=== PATIENT | male | born 1975 | race Caucasian/White ===

== ENCOUNTER → 2025-04-17 16:02 | Outpatient (BNVA) | payer MEDICAID, SELFPAY | PROVIDERS: PCP Nurse Practitioner Family; Visit Provider Nurse Practitioner Family | DX: M16.12 Unilateral primary osteoarthritis, left hip (principal); M24.152 Other articular cartilage disorders, left hip | CPT/HCPCS: 73502 ==

== ENCOUNTER → 2025-05-31 12:11 | Outpatient (BNVA) | payer MEDICAID, SELFPAY | PROVIDERS: PCP Nurse Practitioner Family; Visit Provider Family Medicine | DX: Z01.818 Encounter for other preprocedural examination (principal); M16.12 Unilateral primary osteoarthritis, left hip; R26.2 Difficulty in walking, not elsewhere classified; Z99.89 Dependence on other enabling machines and devices | CPT/HCPCS: 80053; 81000; 85025 ==

== ENCOUNTER 2025-06-06 11:56 | Observation (INO) | payer MEDICAID, SELFPAY ==
[2025-06-06] VITALS (18 sets, daily range): BP systolic 83–154; BP diastolic 51–104; PULSE 48–86; RESP 15–98; TEMP 35.8–37; O2SAT 95–100; BMI 19.8
[2025-06-06 06:20] LABS: Glucose Urine UA Negative (Normal); Nitrate Urine Negative (Negative); Specific Gravity, Urine 1.017 (1.005-1.030)
[2025-06-06 06:25] LABS: Add Urine Microscopic? YES
--- NOTE | 2025-06-06 06:44 | W.PM.OPSUD ---
Surgery/Procedure H&P Update DATE OF PROCEDURE: June 06, 2025 DATE H&P PERFORMED: 05/31/25 H&P UPDATE INFORMATION: I have reviewed H&P completed within last 30 days, I have examined patient prior to procedure and No changes to prior documentation PLANNED PROCEDURE: Operation Date: 06/06/25 09:05 Proposed Procedures p LEFT Total Hip Arthroplasty(Left) - Roderick Otero MD
--- NOTE | 2025-06-06 07:59 | ANES.PREANE2 ---
Pre-Anesthetic Assessment Height/Weight: Height 6 ft 1 in Weight 150 lb Temp Pulse Resp BP Pulse Ox O2 Del Method 98.6 F 81 17 154/104 98 Room Air 06/06/25 06:11 06/06/25 06:11 06/06/25 06:11 06/06/25 06:11 06/06/25 06:11 06/06/25 06:11 Preop Diagnosis: Hip arthritis Operation Date: 06/06/25 09:05 Proposed Procedures p LEFT Total Hip Arthroplasty(Left) - Roderick Otero MD Was Beta Edna taken within 24 hours: N/A Was Clonidine taken within 24 hours: N/A Last intake: Intake Last Liquid Date 06/05/25 Last Liquid Time 19:00 Last Solid Date 06/05/25 Last Solid Time 19:00 Social Alcohol and Tobacco Exam alert, oriented x 3, clear to auscultation bilaterally and regular rate & rhythm Airway Submandibular: within normal limits Cervical ROM: within normal limits Mallampati: Class I Comments: Comments: Edentulous Anesthetic Plan ASA status: 3 Anesthesia: MAC and Regional (specify below) Other: No prior issues with anesthesia NPO since yesterday evening Current smoker, nicotine and marijuana States his blood pressure has been getting higher over the past year. Preop BP 154/104. No antihypertensives at baseline Patient states he has to use a walker to ambulate due to hip pain Labs reviewed and acceptable for procedure Plan for spinal anesthesia Medications/Allergies Home Medications ?Medication ?Instructions ?Recorded ?Confirmed ?Last Taken ?Type diclofenac sodium 50 mg 50 mg PO BID #60 tabs 05/15/25 06/05/25 06/03/25 Rx tablet,delayed release Allergies Allergy/AdvReac Type Severity Reaction Status Date / Time No Known Allergies Allergy Verified 05/31/25 11:30 Current Medications Generic Name Dose Route Start Last Admin Trade Name Freq PRN Reason Stop Dose Admin Sodium Chloride 1,000 mls @ 30 mls/hr 06/06/25 06:15 06/06/25 06:20 Sodium Chloride 0.9% IV 06/07/25 06:14 30 mls/hr .Q24H EVA Administration PFSH Anesthesia Social History Smoking and tobacco/nicotine status: current every day tobacco/nicotine user Data Anesthesia Urine 06/06/25 Range/Units 06:14 Urine Color Yellow (Yellow) Urine Appearance Clear (CLEAR) Urine pH 6.0 (5-7) Ur Specific [place] 1.017 (1.005-1.030) Urine Protein Negative (Negative) Urine Glucose (UA) Negative (Normal) Urine Ketones Negative (Negative) Urine Nitrate Negative (Negative) Urine Bilirubin Negative (Negative) Ur Leukocyte Esterase Negative (Negative) Urine RBC 0-2 (0-2) /hpf Urine WBC 0-5 (0-5) /hpf
[2025-06-06] MEDS: fentaNYL 50 mcg/mL INJ 2mL IVP (08:30)
[2025-06-06] MEDS: ceFAZolin 2,000 mg SDV 2000 MG IVP ×2 (09:11→16:19)
[2025-06-06] MEDS: ceFAZolin 1,000 mg SDV 1000 MG IVP (09:23)
[2025-06-06] MEDS: ceFAZolin 1,000 mg SDV 1000 MG (09:48)
[2025-06-06] MEDS: BUPivacaine liposome 13.3 mg/mL SDV 20 mL 266 MG INFILTRATI (10:07)
[2025-06-06] MEDS: ROPivacaine 0.5% SDV 30 mL 150 MG INJECTION (10:07)
--- NOTE | 2025-06-06 10:52 | XR_ITS ---
WS: [id number] XR hip LT 1V wo/w pel [id number] REASON FOR EXAM: Left total hip arthroplasty FINDINGS: Total left hip arthroplasty. Components of the arthroplasty are intact and in proper position and alignment. Lucency overlying the greater trochanter adjacent to the femoral prosthesis is felt to represent postoperative air in the soft tissues. XR/XR hip LT 1V wo/w pel [id number] IMPRESSION: Total left hip arthroplasty without abnormality.
--- NOTE | 2025-06-06 11:02 | PM.OP ---
Operative Report Date of procedure: June 06, 2025 Surgeon: Roderick Otero MD Procedure: Preoperative diagnosis: End-stage degenerative joint disease left hip Postoperative diagnosis: Same Procedure: Left total hip arthroplasty Surgeon: Roderick Otero MD Cruise Staff Member: GLENDA Bolton's assistance was necessary for positioning of the patient, assistance during the procedure, wound closure, dressing placement Anesthesia: Spinal with IV sedation EBL: 100 cc Indications: Darshan is a 50-year-old white male who presented to the orthopedic clinics with debilitating left hip pain. He is already using a walker at all times. He has shortening of his left leg. X-rays demonstrated significant breakdown of his femoral head and loss of joint space in the acetabulum. This been going on for years. Has not been able to tolerate this with conservative measures and is wondering if hip replacement would be reasonable. After lengthy discussion with risk and benefits as well as possibility of needing further surgery in the future for revision. patient was agreeable to procedure. All risk benefits treatment alternatives were discussed with him Procedure: After obtaining written consent patient taken the operating room and placed on the operative table subsequently having spinal anesthetic administered. Once [place] was achieved patient was positioned in the lateral decubitus position with his left hip up. Pegboard was used to hold him in place. Left hip and leg were prepped and draped usual fashion. After surgical timeout hip was flexed 90 degrees and a minimally invasive posterior lateral incision was made over the tip of the greater trochanter. Sharp dissection taken down to subcutaneous tissues electrocautery used for hemostasis. Cautery was then used to continue on with the dissection to the posterior aspect of the greater trochanter. Leg was gently internally rotated and dissection taken down along the posterior aspect the greater trochanter down to the femoral neck. The capsules are stripped from the femoral neck and the capsule of the hip was opened in a T-type fashion. Once adequate exposure of the femoral head was achieved leg was internally rotated and hip was dislocated. Proximal femur was templated for femoral neck cut. Femoral neck cut was made with a sagittal saw without any difficulties and head was removed. Appropriate retractors were placed to hold back deep tissues and expose the acetabulum. Subsequently a long handled 10 blade was used to remove the ring remnants of the labrum that was still within the acetabulum. Subsequently reaming starting at a size 48 mm reamer and increasing by 1 mm sizes acetabulum is reamed all the way up to size 53 acetabular cup. Good bleeding bone was achieved circumferentially. There was softening of the base of the acetabulum but pelvic wall was not violated. Trial size 54 cup was placed and found to have adequate fit and this was removed then. Subsequently a permanent size 54 porcine growth acetabulum was placed and impacted in appropriate position with appropriate anteversion. Once good fixation was achieved 810 degree high wall polyethylene liner was placed within this after removing soft tissues and bony obstructions in the acetabular region. This is then locked in place. Attention was then turned towards the proximal femur. Appropriate retractors the proximal femur was placed to raise it up out of the wound. Box cut osteotome was used to make an entry point. At this point is felt the femoral neck was a little too long and therefore secondary Was done in the same ankle once this was removed box cut osteotome was used again. Subsequently hand reaming and then lateralizing power reaming was done. Broaches were then started off as a size 0 and going up by 1 mm increments to broach the proximal femur starting at 0 and going all the way up to a size 7 before adequate fit and fill was achieved. At this point canal was washed closed nonsterile irrigation. A permanent size 7 femoral stem was placed and impacted with appropriate anteversion and good fixation achieved. Trial head and necks were placed for starting off with a size 36 head standard neck is found to show shortening of the leg. Trials were then attempted all the way up to the 7.5+ neck which found to have equal leg lengths and good stability. Therefore at this point a size 36 ceramic head with a seven +5 mm neck was placed on the Reed taper and impacted hip was reduced with range of motion found to be stable. Leg lengths were found to be appropriate. At this point bump was placed between the knees to abduct the left leg. Is slightly internally rotated and the hip capsule was repaired #1 Vicryl [id number] sutures. Piriformis was then sutured back to its position on the greater trochanter to bone tunnels that were drilled using #5 Ethibond [id number] sutures through the tendon of the piriformis. This was tied over bone holes. At this point deep retractors were removed fascia was repaired #1 Vicryl [id number]-da-[id number] sutures. Subcutaneous tissue repair is 0 Vicryl interrupted sutures. Skin was closed skin bisi. Wounds are cleaned and dried with Xeroform gauze and OpSite dressing. Patient was awakened transferred cover in stable condition after abduction pillow been placed between his legs
--- NOTE | 2025-06-06 11:53 | ANE.PACU2 ---
Inpatient post-anesthesia follow up: Airway intact: Yes Vital signs: Temperature 96.4 F Pulse Rate 59 Respiratory Rate 18 Blood Pressure 108/72 Pulse Oximetry 99 Oxygen Delivery Me thod Room Air Oxygen Flow Rate Fraction of Inspir ed Oxygen Hydration adequate: Yes Nausea and vomiting: No Pain level: 1 Mental status: Baseline
[2025-06-06] MEDS: chlorhexidine gluconate 0.12% Btl 473 mL 30 ML MUCOUS MEM ×3 (12:22→22:55)
[2025-06-06 13:29] LABS: Hematocrit 35.2 % (37-53); Hemoglobin 11.20 g/dL (11.27-16.99); Mean Corpuscular HGB Conc 31.8 g/dL (30-55); Mean Corpuscular Hemoglobin 27.4 pg (27-33); Mean Corpuscular Volume 86.1 fl (82-101); Nucleated Red Blood Cells % 0 %; Platelet Count 273 10^3/cmm (157-399); Red Blood Count 4.09 10^6/uL (3.85-5.65); White Blood Count 10.71 10^3/uL (3.29-11.43)
[2025-06-06 14:03] LABS: Anion Gap 12.0 (5-19); Blood Urea Nitrogen 10 mg/dL (6-20); Calcium 8.3 mg/dL (8.5-10.5); Carbon Dioxide 25 mmol/L (22-29); Chloride 107 mmol/L (98-107); Glucose 102 mg/dL (65-115); Osmolality Calculated 289 mOsm/kg (285-295); Potassium 4.0 mmol/L (3.5-5.1); Sodium 140 mmol/L (136-145)
[2025-06-06] MEDS: sennosides-docusate Tablet 2 TAB PO (16:18)
[2025-06-06] MEDS: mupirocin oint 22 gm 1 APPLIC NASAL (16:19)
[2025-06-06] MEDS: HYDROcodone-acetaminophen 5-325 mg Tablet 1 TAB PO (16:19)
--- NOTE | 2025-06-06 16:33 | P.PN_ITS ---
Subjective 2 Subjective: Patient is status post left total hip arthroplasty today. He is resting in bed comfortably. He has no complaints of pain problems or difficulties Vitals/I&O/Wt Last Vital Signs Temp 97.5 F L 06/06/25 14:45 Pulse 86 06/06/25 15:34 Resp 15 06/06/25 15:34 BP 128/81 06/06/25 14:45 Pulse Ox 95 06/06/25 15:34 O2 Del Method Room Air 06/06/25 15:34 06/06/25 06/06/25 06/06/25 06:59 14:59 22:59 Intake Total 998.5 / 998.5 Output Total 540 / 540 Balance 458.5 / 458.5 Weight last 48 hrs Weight 150 lb Weight 150 lb Physical Exam 2 Narrative: Dressing is clean and dry. Patient neurovascular intact distally of left lower extremity Urinary Catheter Management: Gard[place]: Cath Placed During This Visit: yes Urinary Catheter Date of Insertion: 06/06/25 Urinary Catheter Time of Insertion: 09:35 Data 06/06/25 13:21 06/06/25 13:21 A&P Assessment and plan 1. Status post total replacement of left hip: Patient had left total hip arthroplasty done today. Tolerated this quite well. Plan: Plan at this time is for overnight observation for pain control. Physical therapy for ambulation and walker use tomorrow PDMP PDMP Reviewed: Not Reviewed Attestations 2 Medical Necessity Statement*: Patient in need of pain control as well as therapy Coding Level of Care Code Acute Code for Chg Fwd Diagnoses Status post total replacement of left hip Z96.642 Laterality: left
[2025-06-06] MEDS: morphine 4 mg/mL SDV 1 mL IVP (19:27)
[2025-06-07] MEDS: ceFAZolin 2,000 mg SDV 2000 MG IVP ×2 (00:53→08:47)
[2025-06-07 04:00] VITALS: BP 164/81; PULSE 97; RESP 17; TEMP 37.4; O2SAT 96
[2025-06-07] MEDS: sennosides-docusate Tablet 2 TAB PO (05:00)
[2025-06-07] MEDS: chlorhexidine gluconate 0.12% Btl 473 mL 30 ML MUCOUS MEM (05:01)
[2025-06-07] MEDS: mupirocin oint 22 gm 1 APPLIC NASAL (05:01)
[2025-06-07] MEDS: multivitamin therapeutic Tablet 1 TAB PO (05:01)
[2025-06-07] MEDS: HYDROcodone-acetaminophen 5-325 mg Tablet 1 TAB PO (07:19)
[2025-06-07 07:56] VITALS: BP 133/83; PULSE 96; RESP 16; TEMP 36.7; O2SAT 95
[2025-06-07 11:40] VITALS: BP 126/77; PULSE 82; RESP 17; TEMP 36.6; O2SAT 98
--- NOTE | 2025-06-07 12:11 | P.DS_ITS ---
Discharge Providers Date of Admission: 06/06/25 11:56 Date of Discharge: June 07, 2025 Attending Provider at Admission: Roderick Otero MD Attending Provider at Discharge: Roderick Otero MD Primary Care Provider: Yohannes Will Diagnoses at Discharge Discharge Diagnosis 1. Status post total replacement of left hip: Details from hospital stay: Patient was admitted on 06/06/2025 for left total hip arthroplasty. Patient tolerated this procedure well. He was held overnight for pain control as well as physical therapy. He has since then passed his physical therapy demonstrating he has good skills to protect himself. He has been instructed on hip precautions. He is requesting to be discharged home. Reason for Visit Reason for Visit: M25.552 Hospital Course Hospital Course Hospital course: Patient admitted on 06/06/2025 for above-stated procedure. Tolerated this well. Over the course of the evening pain was under good control. Labs are stable today. He has already gone through physical therapy and learned his hip precautions. Physical Exam Narrative: Left hip dressing is dry and clear today. He is neurovasc intact distally in his left lower extremity Urinary Catheter Management: Garduno: Cath Placed During This Visit: yes, but has since been removed by the nurse Reason for Continuing Indwelling Catheter: Perioperative Use in Selected Surgeries Urinary Catheter Date of Insertion: 06/06/25 Urinary Catheter Time of Insertion: 09:35 Date Urinary Catheter Removed: 06/07/25 Time Urinary Catheter Discontinued: 05:15 Discharge Data Studies Completed and Pending Completed Studies During Hospitalization Category Date Time Status XR hip LT 1V wo/[place] [id number] Routine Exams 06/06/25 10:52 Completed Radiology Impressions Hip X-Ray 06/06/25 10:52 IMPRESSION: Total left hip arthroplasty without abnormality. Laboratory Results WBC 10.71 10^3/uL (3.29-11.43) 06/06/25 13:21 RBC 4.09 10^6/uL (3.85-5.65) 06/06/25 13:21 Hgb 11.20 g/dL (11.27-16.99) L 06/06/25 13:21 Hct 35.2 % (37-53) L 06/06/25 13:21 MCV 86.1 fl (82-101) 06/06/25 13:21 MCH 27.4 pg (27-33) 06/06/25 13:21 MCHC 31.8 g/dL (30-55) 06/06/25 13:21 RDW 12.6 % (12.1-15.1) 06/06/25 13:21 Plt Count 273 10^3/cmm (157-399) 06/06/25 13:21 MPV 9.7 fL (7.4-10.4) 06/06/25 13:21 Neut % (Auto) 71.1 % 06/06/25 13:21 Lymph % (Auto) 21.4 % 06/06/25 13:21 [place] % (Auto) 4.2 % 06/06/25 13:21 Eos % (Auto) 2.1 % 06/06/25 13:21 Baso % (Auto) 0.7 % 06/06/25 13:21 Neut # (Auto) 7.61 10^3/uL (1.8-7.7) 06/06/25 13:21 Lymph # (Auto) 2.3 10^3/uL (0.8-4.8) 06/06/25 13:21 [place] # (Auto) 0.5 10^3/uL (0.2-0.9) 06/06/25 13:21 Eos # (Auto) 0.2 10^3/uL (0.0-0.8) 06/06/25 13:21 Baso # (Auto) 0.1 10^3/uL (0.0-0.1) 06/06/25 13:21 Nucleated RBC % (auto) 0 % 06/06/25 13:21 Nucleated RBCs # 0.0 /100WBC 06/06/25 13:21 Sodium 140 mmol/L (136-145) 06/06/25 13:21 Potassium 4.0 mmol/L (3.5-5.1) 06/06/25 13:21 Chloride 107 mmol/L (98-107) 06/06/25 13:21 Carbon Dioxide 25 mmol/L (22-29) 06/06/25 13:21 Anion Gap 12.0 (5-19) 06/06/25 13:21 BUN 10 mg/dL (6-20) 06/06/25 13:21 Creatinine 0.8 mg/dL (0.7-1.2) 06/06/25 13:21 GFR Calculation 103.2 mL/min (90-130) 06/06/25 13:21 Glucose 102 mg/dL (65-115) 06/06/25 13:21 Calculated Osmolality 289 mOsm/kg (285-295) 06/06/25 13:21 Calcium 8.3 mg/dL (8.5-10.5) L 06/06/25 13:21 Urine Color Yellow (Yellow) 06/06/25 06:14 Urine Appearance Clear (CLEAR) 06/06/25 06:14 Urine pH 6.0 (5-7) 06/06/25 06:14 Ur Specific [place] 1.017 (1.005-1.030) 06/06/25 06:14 Urine Protein Negative (Negative) 06/06/25 06:14 Urine Glucose (UA) Negative (Normal) 06/06/25 06:14 Urine Ketones Negative (Negative) 06/06/25 06:14 Urine Blood Negative (Negative) 06/06/25 06:14 Urine Nitrate Negative (Negative) 06/06/25 06:14 Urine Bilirubin Negative (Negative) 06/06/25 06:14 Urine Urobilinogen 1.0 mg/dL (Negative) 06/06/25 06:14 Ur Leukocyte Esterase Negative (Negative) 06/06/25 06:14 Urine RBC 0-2 /hpf (0-2) 06/06/25 06:14 Urine WBC 0-5 /hpf (0-5) 06/06/25 06:14 Ur Squamous Epith Cells 0-5 /hpf (0-5) 06/06/25 06:14 Amorphous Sediment Not Reportable 06/06/25 06:14 Urine Bacteria None seen /hpf (NONE) 06/06/25 06:14 Hyaline Casts 0-4 /lpf H 06/06/25 06:14 Procedures Performed Left total hip arthroplasty Vitals Last Vital Signs Temp 97.8 F 06/07/25 11:40 Pulse 82 06/07/25 11:40 Resp 17 06/07/25 11:40 BP 126/77 06/07/25 11:40 Pulse Ox 98 06/07/25 11:40 O2 Del Method Room Air 06/07/25 04:00 Discharge Plan Discharge Patient Disposition: Home Condition: Stable Prescriptions: New hydrocodone-acetaminophen 5-325 mg tablet 1 tab PO Q6H PRN (Reason: pain) Qty: 30 0RF Continued diclofenac sodium 50 mg tablet,delayed release (DR/EC) 50 mg PO BID Qty: 60 1RF Discharge Order = DC NOW: Discharge Order (Routine); Ordered 06/07/25 Ordered By: Roderick Otero Referrals: Roderick Otero MD [Physician, Orthopedics] - 06/26/25 10:15 am Discharge Diet: Advance as tolerated Discharge Activity: Limit activity as instructed Patient Instructions: Hydrocodone/Acetaminophen (By mouth), Aspirin (By mouth), Acute Wound Care (DC), Total Hip Replacement (GEN), Post Anesthesia Care Activity Restrictions/Additional Instructions: Hip precautions at all time Walker ambulation at all time Ice to the left hip as needed Adult aspirin 1 p.o. daily May supplement pain medication with anti-inflammatories. Call with any concerns Discharge Attestations Time Spent in Discharge Care*: less than 30 min Quality Metrics Clinical Quality Measures [ No reported AMI, CVA or VTE this stay] Coding Level of Care Code Acute Code for Chg Fwd Diagnoses Status post total replacement of left hip Z96.642 Laterality: left
--- NOTE | 2025-06-07 14:04 | PC.RESP ---
Attempted to placed patient on [facility] but was stopped by Carlee the Nurse and she stated that [facility] wanted patient titrate to 10 lpm .
--- NOTE | 2025-06-07 14:15 | PC.NURSE ---
Discharge Note Patient discharged to home via private vehicle accompanied by ready transport. Discharge instructions reviewed with patient and/or hobbies and crafts sales representative. Mobile pharmacy medications and/or prescriptions provided. Belongings/home medications returned.
[2025-06-07 14:16] VITALS: BP 126/77; PULSE 82; RESP 17; TEMP 36.6; O2SAT 98
== END 2025-06-07 13:45 | disposition home or self-care (01) ==
LOC: MEDSURG 12:14
PROVIDERS: Admitting Provider Orthopaedic Surgery; PCP Nurse Practitioner Family; Visit Provider Orthopaedic Surgery
PROC: (CPT 27130; principal; 2025-06-06 09:05)
DX: M16.12 Unilateral primary osteoarthritis, left hip (principal); F17.200 Nicotine dependence, unspecified, uncomplicated; F12.90 Cannabis use, unspecified, uncomplicated
CPT/HCPCS: 27130; 36415; 51702; 73501; 80048; 81001; 85025; 97116; 97161; 97165; 97530; C1776; G0378; J0666; J0690; J1885; J2250; J2270; J2371; J2704; J2795; J3010; J7030; J9999

== ENCOUNTER → 2025-06-26 09:46 | Outpatient (BNVA) | payer OTHER, MEDICAID, SELFPAY | PROVIDERS: PCP Nurse Practitioner Family; Visit Provider Orthopaedic Surgery | DX: Z96.642 Presence of left artificial hip joint (principal) | CPT/HCPCS: 73502 ==